=== PATIENT | female | born 1975 | race Caucasian/White ===

== ENCOUNTER → 2018-02-28 12:01 | Outpatient (CLI) | payer MEDICARE, SELFPAY ==
--- NOTE | 2018-02-28 | DI.MG.S_ITS ---
UNILATERAL LEFT DIGITAL DIAGNOSTIC MAMMOGRAM 3D/2D SHORT-TERM FOLLOW-UP: 02/28/2018 CLINICAL: Patient returns for a 6 month follow up of the left breast. Comparison is made to exams dated: 08/02/2017 mammogram, 07/19/2017 mammogram, and 04/20/2016 mammogram - [facility]. The tissue of left breast is extremely dense, which lowers the sensitivity of mammography. Previously identified grouped punctate calcifications in the upper outer left breast at 2 o'clock posterior depth remain stable when compared with exams of 08/02/2017 and 07/19/2017. No other significant masses, calcifications, or other findings are seen in the breast. IMPRESSION: PROBABLY BENIGN Previously identified grouped punctate calcifications in the upper outer left breast at 2 o'clock posterior depth remain stable when compared with exams of 08/02/2017 and 07/19/2017. A follow-up mammogram in 6 months is recommended to demonstrate stability. Patient will be due for bilateral screening mammography at that time as well. This exam was interpreted at Station ID: [id number]. NOTE: For mammograms, a report in lay terms will be sent to the patient. Approximately 15% of breast malignancies will not be visualized mammographically. In the management of a palpable breast mass, a negative mammogram must not discourage biopsy of a clinically suspicious lesion. Electronically Signed By: Lazarus Yu M.D. ecl/:02/28/2018 13:29:39 letter sent: Followup Recommended ACR BI-RADS Category 3: Probably benign 3343F
== END ==
PROVIDERS: PCP Nurse Practitioner Gerontology; Visit Provider Nurse Practitioner Gerontology
DX: R92.1 Mammographic calcification found on diagnostic imaging of breast (principal)
CPT/HCPCS: 77065; G0279

== ENCOUNTER → 2018-09-05 13:28 | Outpatient (CLI) | payer MEDICARE, SELFPAY ==
--- NOTE | 2018-09-05 | DI.MG.S_ITS ---
BILATERAL DIGITAL DIAGNOSTIC MAMMOGRAM 3D/2D: 09/05/2018 CLINICAL: Short term follow up, due bilaterally. Comparison is made to exams dated: 02/28/2018 mammogram, 08/02/2017 mammogram, and 07/19/2017 mammogram - [facility]. The tissue of both breasts is extremely dense, which lowers the sensitivity of mammography. Previously identified grouped punctate calcifications in the upper outer left breast at 2 o'clock posterior depth remain stable when compared with exams of 02/28/2018, 08/02/2017 and 07/19/2017. No significant masses, calcifications, or other findings are seen in either breast. IMPRESSION: Previously identified grouped punctate calcifications in the upper outer left breast at 2 o'clock posterior depth remain stable when compared with exams of 02/28/2018, 08/02/2017 and 07/19/2017. There is no mammographic evidence of malignancy. Return to annual mammogram screening schedule is recommended. Findings and recommendations were conveyed to the patient at time of exam. This exam was interpreted at Station ID: [id number]. NOTE: For mammograms, a report in lay terms will be sent to the patient. Approximately 15% of breast malignancies will not be visualized mammographically. In the management of a palpable breast mass, a negative mammogram must not discourage biopsy of a clinically suspicious lesion. Electronically Signed By: Lisa traylor/:09/05/2018 16:49:01 letter sent: Normal Exam ACR BI-RADS Category 2: Benign Finding(s) 3342F
== END ==
LOC: MAMMO 13:30
PROVIDERS: PCP Nurse Practitioner Gerontology; Visit Provider Nurse Practitioner Gerontology
DX: R92.1 Mammographic calcification found on diagnostic imaging of breast (principal)
CPT/HCPCS: 77066; G0279

== ENCOUNTER → 2019-12-31 17:03 | Outpatient (CLI) | payer MEDICARE, MEDICAID, SELFPAY ==
--- NOTE | 2019-12-31 17:19 | DI.MG.S_ITS ---
Patient Name: BAYRON MASSEY date: 1975 Sex: F Attending Physician: Darío Indications: Date: 12/31/2019 17:15 At the request of: NELLY BRITTON Procedure: MM screening mammo BI BILATERAL DIGITAL SCREENING MAMMOGRAM 3D/2D WITH CAD: 12/31/2019 CLINICAL: Routine screening. Comparison is made to exams dated: 09/05/2018 mammogram, 08/02/2017 mammogram, 07/19/2017 mammogram, and 04/20/2016 mammogram - [facility]. The tissue of both breasts is heterogeneously dense. This may lower the sensitivity of mammography. Current study was also evaluated with a Computer Aided Detection (CAD) system. There are benign calcifications in both breasts. No significant masses, calcifications, or other findings are seen in either breast. There has been no significant interval change. IMPRESSION: BENIGN There is no mammographic evidence of malignancy. A 1 year screening mammogram is recommended. This exam was interpreted at Station ID: [id number]. NOTE: For mammograms, a report in lay terms will be sent to the patient. Approximately 15% of breast malignancies will not be visualized mammographically. In the management of a palpable breast mass, a negative mammogram must not discourage biopsy of a clinically suspicious lesion. Electronically Signed By: Crescencio ramon/rome:01/01/2020 08:48:59 letter sent: Normal Exam ACR BI-RADS Category 2: Benign Finding(s) 3342F
== END ==
PROVIDERS: PCP Nurse Practitioner Gerontology; Referring Provider Nurse Practitioner Gerontology; Visit Provider Nurse Practitioner Gerontology
DX: Z12.31 Encounter for screening mammogram for malignant neoplasm of breast (principal)
CPT/HCPCS: 77063; 77067

== ENCOUNTER → 2021-03-11 12:02 | Outpatient (CLI) | payer BC, MEDICARE, OTHER, MEDICAID, SELFPAY ==
--- NOTE | 2021-03-11 | DI.MG.S_ITS ---
BILATERAL DIGITAL SCREENING MAMMOGRAM 3D/2D WITH CAD: 03/11/2021 CLINICAL: Routine screening. Comparison is made to exams dated: 03/11/2021 mammogram, 12/31/2019 mammogram, 09/05/2018 mammogram, and 07/19/2017 mammogram - [facility]. The tissue of both breasts is heterogeneously dense. This may lower the sensitivity of mammography. Current study was also evaluated with a Computer Aided Detection (CAD) system. There are benign calcifications in both breasts. No significant masses, calcifications, or other findings are seen in either breast. There has been no significant interval change. IMPRESSION: BENIGN There is no mammographic evidence of malignancy. A 1 year screening mammogram is recommended. This exam was interpreted at Station ID: [id number]. NOTE: For mammograms, a report in lay terms will be sent to the patient. Approximately 15% of breast malignancies will not be visualized mammographically. In the management of a palpable breast mass, a negative mammogram must not discourage biopsy of a clinically suspicious lesion. Electronically Signed By: Seven mas/rome:03/11/2021 12:48:37 letter sent: Normal Exam ACR BI-RADS Category 2: Benign Finding(s) 3342F
== END ==
PROVIDERS: PCP Nurse Practitioner; Referring Provider Nurse Practitioner; Visit Provider Nurse Practitioner
DX: Z12.31 Encounter for screening mammogram for malignant neoplasm of breast (principal)
CPT/HCPCS: 77063; 77067

== ENCOUNTER → 2021-04-04 12:35 | Outpatient (CLI) | payer BC, MEDICARE, MEDICAID, SELFPAY ==
--- NOTE | 2021-04-04 12:44 | DI.CT.S_ITS ---
PROCEDURE: CT HEAD/BRAIN WO CON INDICATIONS: Migraine, unspecified, not intractable, without st TECHNIQUE: Noncontrast 4.5 mm thick angled axial sections acquired from the foramen magnum to the vertex, with coronal and sagittal reformats. For radiation dose reduction, the following was used: automated exposure control, adjustment of mA and/or kV according to patient size. COMPARISON: None. FINDINGS: Cerebrum, Cerebellum and Brainstem: Wedge-shaped cystic encephalomalacia and gliosis along the posterior 3rd of right hemisphere extending to the lateral ventricle also involves the corpus callosum splenium consistent with prior surgical resection. No evidence of intracranial hemorrhage or acute mass effect. Ventricles: As above. No evidence of hydrocephalus. Skull Base: The bony sella, pituitary gland and infundibulum are unremarkable. Clivus and craniovertebral relationships are appropriate. Visualized portions of the external auditory canals and tympanic cavity are within normal limits. Calvarium and Scalp: Right posterior parietal craniectomy with cranioplasty noted. Paranasal Sinuses: Unremarkable as visualized. Polypoid soft tissue density in the nasopharynx is partially imaged Mastoids: Unremarkable as visualized. No mastoid effusion present. IMPRESSION: 1. No acute findings. No intracranial hemorrhage or mass effect. 2. Right-sided wedge-shaped craniectomy with cystic encephalomalacia and cranioplasty 3. Partially imaged polypoid soft tissue density nasopharynx probably reflects sinonasal polyp. Consider dedicated CT sinus. Approved by: Patrick Rosas M.D. on 04/04/2021 at 14:27
== END ==
PROVIDERS: PCP Nurse Practitioner; Referring Provider Nurse Practitioner; Visit Provider Nurse Practitioner
DX: G43.909 Migraine, unspecified, not intractable, without status migrainosus (principal); G93.89 Other specified disorders of brain
CPT/HCPCS: 70450

== ENCOUNTER → 2021-05-06 12:01 | Outpatient (CLI) | payer BC, MEDICARE, MEDICAID, SELFPAY ==
--- NOTE | 2021-05-06 12:11 | DI.CT.S_ITS ---
PROCEDURE: CT SINUS SCREEN WO CON INDICATIONS: Nasal polyp, unspecified TECHNIQUE: Noncontrast 3.0 mm axial images acquired from the frontal sinuses to the mid-sella, with coronal and sagittal reformats. For radiation dose reduction, the following was used: automated exposure control, adjustment of mA and/or kV according to patient size. COMPARISON: [facility], CT, CT HEAD/BRAIN WO CON, 04/04/2021, 12:50. FINDINGS: Image quality: Excellent. Maxillary Sinuses: Mild mucosal thickening is seen involving the inferior right maxillary sinus. The right maxillary sinus is incompletely imaged. Ethmoid Air Cells: No bony remodeling or destruction. Sinuses are clear. Sphenoid Sinuses: No bony remodeling or destruction. Sinuses are clear. Frontal Sinuses: No bony remodeling or destruction. Sinuses are clear. Ostiomeatal Complexes: Ostiomeatal complexes are patent. No Evgeny cells. Miscellaneous: Visualized intra-orbital contents are normal. No jcarlos bullosa or paradoxical turbinate curvature. There is zfuc-pi-yncfapln leftward nasal septal deviation. A lobulated nasopharyngeal soft tissue mass is seen that measures up to 2.5 cm. Within the nasal cavity itself, no significant polyps can be seen. Postoperative change can be partially seen involving posterior right calvarium, with underlying brain abnormality. IMPRESSION: There is a 2.5 cm lobulated soft tissue mass seen within the nasopharynx. Although this may be related to a polyp, differential diagnosis includes neoplasm. Please correlate with physical examination findings. Mild focal soft tissue swelling can be seen within the inferior right maxillary sinus. The right maxillary sinus is incompletely imaged. Mimp-hk-ytmikzhg leftward nasal septal deviation can be seen. Right posterior craniotomy change, with underlying brain abnormality. This is better seen on the recent prior head CT. Dictated by: Parish Watters M.D. on 05/06/2021 at 12:00 Approved by: Parish Watters M.D. on 05/06/2021 at 12:05
== END ==
PROVIDERS: PCP Nurse Practitioner; Referring Provider Otolaryngology; Visit Provider Otolaryngology
DX: J33.9 Nasal polyp, unspecified (principal); J32.3 Chronic sphenoidal sinusitis; J34.89 Other specified disorders of nose and nasal sinuses; J34.2 Deviated nasal septum
CPT/HCPCS: 70486

== ENCOUNTER → 2021-07-13 08:49 | Outpatient (CLI) | payer BC, MEDICARE, MEDICAID, SELFPAY ==
[2021-07-13 11:49] LABS: COVID19 -Nasal RAPID Negative (Negative)
== END ==
PROVIDERS: PCP Nurse Practitioner; Visit Provider Nurse Practitioner Family
DX: Z20.822 Contact with and (suspected) exposure to COVID-19 (principal)
CPT/HCPCS: 87635; C9803

== ENCOUNTER 2021-07-14 13:52 | Day surgery (SDC) | payer BC, MEDICARE, MEDICAID, SELFPAY ==
[2021-07-12 07:55] VITALS: BMI 34.8
[2021-07-14] VITALS (8 sets, daily range): BP systolic 103–139; BP diastolic 61–88; PULSE 52–78; RESP 12–16; TEMP 35.6–36.5; O2SAT 96–99; BMI 34.8
--- NOTE | 2021-07-14 | PATH_ITS ---
[facility] Accession Number: [id number] . 01 Material submitted: . NASAL - RIGHT NASAL POLYP . 01 Diagnosis: Right Nasal Polyp, Excision: Consistent with nasal polyp. Scattered eosinophils and plasma cells present. No evidence of neoplasm. MRV 07/19/2021 1306 Local . 01 Electronically signed: . Ivan Agee MD, PhD, Pathologist NPI- [id number] . 01 Gross description: . Received in one part. . Received in formalin, labeled Vaishnavi Horn and designated 1. Right nasal polyp, is a 3.0 x 2.5 x 2.0 cm, multilobulated, polypoid portion of lara-white, fibrotic, glistening tissue. The base is inked black. The cut surface is uniform, lara-white, and slightly edematous. No additional lesions are identified. Pattern Duplicator sections are submitted in cassette A1. (SHAMAR:[id number]) /FRR 07/16/2021 1806 Local . 01 Pathologist provided ICD-10: J33.9, J34.89 . 01 CPT . 310016 Specimen Comment: A courtesy copy of this report has been sent to [phone] [facility]formed at: [facility] [address] [place] [address] [address] [facility], [place], [place] [id number] MD Louis Ayala MD Phone: [phone]
[2021-07-14] MEDS: OXYMETAZOLINE NASAL SPRAY 15 ML 2 SPRAYS NASAL (14:13)
--- NOTE | 2021-07-14 14:37 | PM.PREOP ---
Pre-operative Note Interval Note History & Physical reviewed/Exam performed by Physician: Yes Changes to H&P: No
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
--- NOTE | 2021-07-14 14:40 | PM.OP.1 ---
Operative Date/Time/Diagnoses Date of procedure: 07/14/21 Time of procedure: 15:38 Pre-op diagnosis: Nasopharyngeal mass, nasal airway obstruction Post-op diagnosis: same Procedure & Clinicians Procedure: Endoscopic excision right intranasal mass, extending into the nasopharynx Same procedure as scheduled: Yes Indications: 45-year-old female with above diagnosis incompletely managed with medical therapy presents for the above procedure. Following discussion of the material risks benefits complications and alternatives, she elected to proceed. Surgeon: Russell Donato Click Yes if Unassisted: Yes Anesthesia Type: General and Local Operative Notes Findings: Several cm pale lobulated mass pedunculated with the attachment point the anterior face of the sphenoid sinus, originating from the medial inferior portion of the large natural os of the right sphenoid sinus. No obvious intra sinus extension, presumed blood supply the nasal septal branch that required cautery. The mass was extracted through the mouth due to its size. Entirely healthy mucosa otherwise. Specimen(s): other (Right nasal/nasopharyngeal mass) Estimated Blood Loss (mL): 5 Procedure in detail: Following identification and confirmation of consent, the patient was brought to the operating room suite and placed in the supine position. General endotracheal anesthesia was administered. Cotton with 4% lidocaine and Afrin on pledgets was placed into the nose on the right for several minutes. Following sterile prep and drape, the packing was removed and under endoscopic guidance I infiltrated the posterior and anterior superior insertion of the right middle turbinate. The mass was easily visualized attached to the anterior face of the right sphenoid with a large natural os already present, no inflammation. I resected the mass by transecting the attachment point with through cutting forceps and the mass was eventually extracted through the mouth due to its size. The attachment point on the face of the sphenoid extending to the medial inferior portion of the natural os was cauterized with suction electrocautery on a setting of 10 with excellent hemostasis. The procedure was completed without known complication and she was extubated in the operating room and taken to recovery room in stable condition. Complications: none Post-operative Condition: stable Disposition: same day surgery Plan for aftercare: Nasal saline every hour while awake, begin irrigations t.i.d. tomorrow, Tylenol alternating with Advil for pain control, oxycodone for breakthrough pain. Elevate head of bed, no nose blowing, no straining for 2 weeks. Follow-up in 1 week, sooner with concerns.
--- NOTE | 2021-07-14 15:14 | SUR.OPER ---
Supine on padded OR bed, head on gel donut, arms padded and tucked at sides, legs uncrossed, safety belt at thigh, tape over blanket over lower legs .
--- NOTE | 2021-07-14 16:07 | SUR.PHASEII ---
SBAR report from Dillon KEENAN. Pt taking coffee. Reports headache and mild pain 2/10 on right side of nose. no drainage to dressing.
[2021-07-14] MEDS: OXYCODONE/ACETAMINOPHEN 5/325 TABLET 1 TAB PO (16:16)
[2021-07-14] MEDS: LACTATED RINGERS 1,000 ML 42 ML IV (16:55)
--- NOTE | 2021-07-14 16:55 | SUR.PHASEII ---
IV started in pre-op. completed in PACU
--- NOTE | 2021-07-14 17:03 | SUR.PHASEII ---
Pt car, discharge instructions reviewed with Devon escobar [facility]. Spoke with Dr Donato. Clarified saline flush with small bottle every hour and saline rinse three times a day.
== END 2021-07-14 17:00 | disposition home or self-care (01) ==
PROVIDERS: PCP Nurse Practitioner; Referring Provider Otolaryngology; Visit Provider Otolaryngology
PROC: (CPT 31231; principal; 2021-07-14 15:00)
DX: J33.9 Nasal polyp, unspecified (principal); J34.89 Other specified disorders of nose and nasal sinuses
CPT/HCPCS: 31237; A9270; J1100; J2250; J2405; J2704; J3010

== ENCOUNTER → 2022-09-23 09:06 | Outpatient (CLI) | payer BC, MEDICARE, SELFPAY ==
--- NOTE | 2022-09-23 09:10 | DI.MG.S_ITS ---
BILATERAL DIGITAL SCREENING MAMMOGRAM 3D/2D WITH CAD: 09/23/2022 CLINICAL: Routine screening. Comparison is made to exams dated: 03/11/2021 mammogram, 03/11/2021 mammogram, and 12/31/2019 mammogram - [facility]. Both breasts are heterogeneously dense, which may obscure small masses (category c / 51-75% glandular tissue). Current study was also evaluated with a Computer Aided Detection (CAD) system. There are benign calcifications in both breasts. No significant masses, calcifications, or other findings are seen in either breast. There has been no significant interval change. IMPRESSION: BENIGN There is no mammographic evidence of malignancy. A 1 year screening mammogram is recommended. Based on the Tyrer Cuzick model (a risk assessment model) the patient's lifetime risk is 8.7% and her 10 year risk is 1.6%. According to the ACR, ACS, and NCCN guidelines, an annual breast MRI exam along with mammogram is recommended if the patient's lifetime risk is 20% or greater. This exam was interpreted at Station ID: [id number]. NOTE: For mammograms, a report in lay terms will be sent to the patient. Approximately 15% of breast malignancies will not be visualized mammographically. In the management of a palpable breast mass, a negative mammogram must not discourage biopsy of a clinically suspicious lesion. Electronically Signed By: [place] nicholas/rome:09/25/2022 09:13:23 letter sent: Normal Exam ACR BI-RADS Category 2: Benign Finding(s) 3342F
== END ==
PROVIDERS: PCP Nurse Practitioner; Referring Provider Nurse Practitioner; Visit Provider Nurse Practitioner
DX: Z12.31 Encounter for screening mammogram for malignant neoplasm of breast (principal)
CPT/HCPCS: 77063; 77067

== ENCOUNTER 2022-12-18 12:42 | Day surgery (SDC) | payer BC, MEDICARE, SELFPAY ==
--- NOTE | 2022-12-18 | PATH_ITS ---
[facility] Accession Number: [id number] No. of containers..02 Tissue . 01 Material submitted: . PART A: colon - CECUM PART B: colon - ASCENDING POLYP . 01 Diagnosis: A. Cecum, Polyp: Sessile serrated adenoma. . B. Ascending Colon, Polyp: Tubular adenoma. MRV 12/26/2022 1758 Local . 01 Electronically signed: . Vaishnavi De Oliveira MD, Pathologist NPI- [id number] . 01 Gross description: . Part A: CECUM: Received in formalin is 2 fragment(s) of lara, soft tissue measuring 1.1 x 0.6 x 0.4 cm to 05 x 0.3 x 0.2 cm submitted entirely in 1 cassette(s) Part B: ASCENDING POLYP: Received in formalin is 3 fragment(s) of lara, soft tissue measuring 0.7 x 0.3 x 0.2 cm to 0.3 x 0.2 x 0.2 cm submitted entirely in 1 cassette(s) /AAY 12/19/2022 0440 Local . 01 Pathologist provided ICD-10: D12.0, D12.2 . 01 CPT . 753244, 659877 Specimen Comment: A courtesy copy of this report has been sent to [phone] Performed at: [facility] [address] [place] [address], [place], [place] [id number] MD Louis Ayala MD Phone: [phone]
[2022-12-18 13:01] VITALS: BP 127/83; PULSE 79; RESP 16; TEMP 36.4; O2SAT 97; BMI 33.0
[2022-12-18] MEDS: LACTATED RINGERS 1,000 ML 125 ML IV (13:26)
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
--- NOTE | 2022-12-18 15:42 | PM.OP.COLON ---
Operative Date/Time/Diagnoses Date of procedure: 12/18/22 Time of procedure: 15:42 Pre-op diagnosis: Colon cancer screening Post-op diagnosis: same Procedure & Clinicians Study performed: Colonoscopy with hot snare polypectomy Same procedure as scheduled: Yes Indications: Colon cancer screening Surgeon: Faraz Pérez Procedure Notes SCOAP/Timeout: Done Procedure in detail: After the risks and benefits were explained, written and verbal informed consent was obtained. The patient was brought into the procedure room and placed into the left lateral decubitus position. Please see anesthesia note for sedation details. Digital rectal examination was accomplished. The scope was introduced into the patient and advanced under direct visualization to the cecum as identified by the appendiceal orifice and ileocecal valve. The scope was slowly withdrawn to carefully examine the mucosa for any defects or lesions. Comprehensive imaging was accomplished throughout the rectum including the dentate line. The colon was decompressed, the scope was then removed from the patient who tolerated the procedure well. Pediatric colonoscope Bowel prep adequate Scope withdrawal time: 21 minutes Sedation minutes: 31 Complications: none Impression: There was a 15 mm sessile polyp in the cecum removed with hot snare. In the ascending colon there was an approximately 10 mm sessile polyp removed with hot snare. This required 2 separate snares as the most proximal aspect of this polyp did not come with the 1st excision attempt. It was therefore removed in piecemeal format. No other significant pathology was appreciated throughout. Endoscopic diagnosis 1. Colon polyps 2. Otherwise visually unremarkable colonoscopy Post-procedure Plan for aftercare: 1. Await histopathology. 2. Timing of repeat colonoscopy will be contingent on histopathology results. Because of the piecemeal removal of the ascending colon polyp, an early surveillance may be appropriate. Disposition: PACU
[2022-12-18 15:46] VITALS: BP 101/61; PULSE 50; RESP 16; TEMP 36.2; O2SAT 98
[2022-12-18 15:50] VITALS: BP 101/61; PULSE 50; RESP 16; TEMP 36.2; O2SAT 98
[2022-12-18 15:55] VITALS: BP 125/77; PULSE 87; RESP 16; TEMP 36.8; O2SAT 98
[2022-12-18 16:02] VITALS: BP 101/66; PULSE 55; RESP 16; TEMP 36.2; O2SAT 98
== END 2022-12-18 16:15 | disposition home or self-care (01) ==
PROVIDERS: PCP Nurse Practitioner; Referring Provider Internal Medicine Gastroenterology; Visit Provider Internal Medicine Gastroenterology
PROC: 0DJD8ZZ Inspection of Lower Intestinal Tract, Via Natural or Artificial Opening Endoscopic (ICD-10-PCS; CPT 45378; principal; 2022-12-18 14:00)
DX: Z12.11 Encounter for screening for malignant neoplasm of colon (principal); D12.0 Benign neoplasm of cecum; D12.2 Benign neoplasm of ascending colon
CPT/HCPCS: 45385; J2704

== ENCOUNTER → 2023-10-19 08:01 | Outpatient (CLI) | payer BC, SELFPAY ==
--- NOTE | 2023-10-19 | DI.MG.S_ITS ---
BILATERAL DIGITAL SCREENING MAMMOGRAM 3D/2D WITH CAD: 10/19/2023 CLINICAL: Routine screening. Comparison is made to exams dated: 09/23/2022 mammogram, 03/11/2021 mammogram, and 03/11/2021 mammogram - [facility]. Both breasts are heterogeneously dense, which may obscure small masses (category c / 51-75% glandular tissue). Current study was also evaluated with a Computer Aided Detection (CAD) system. There are benign calcifications in both breasts. No significant masses, calcifications, or other findings are seen in either breast. There has been no significant interval change. IMPRESSION: BENIGN There is no mammographic evidence of malignancy. A 1 year screening mammogram is recommended. Based on the Tyrer Cuzick model (a risk assessment model) the patient's lifetime risk is 9.0% and her 10 year risk is 1.9%. According to the ACR, ACS, and NCCN guidelines, an annual breast MRI exam along with mammogram is recommended if the patient's lifetime risk is 20% or greater. This exam was interpreted at Station ID: [id number]. NOTE: For mammograms, a report in lay terms will be sent to the patient. Approximately 15% of breast malignancies will not be visualized mammographically. In the management of a palpable breast mass, a negative mammogram must not discourage biopsy of a clinically suspicious lesion. Electronically Signed By: Crescencio ramon/rome:10/19/2023 08:59:20 letter sent: Normal Exam ACR BI-RADS Category 2: Benign Finding(s) 3342F
== END ==
PROVIDERS: PCP Nurse Practitioner; Referring Provider Nurse Practitioner; Visit Provider Nurse Practitioner
DX: Z12.31 Encounter for screening mammogram for malignant neoplasm of breast (principal); R92.333 Mammographic heterogeneous density, bilateral breasts
CPT/HCPCS: 77063; 77067

== ENCOUNTER → 2023-11-02 07:29 | Outpatient (CLI) | payer BC, SELFPAY ==
--- NOTE | 2023-11-02 07:30 | DI.US.S_ITS ---
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 Additional endovaginal scanning was necessary due to incomplete visualization of the adnexal and endometrial structures by transabdominal scanning. COMPARISON: None. FINDINGS: Uterus: Uterus is anteverted and normal in size at 10.4 x 5.5 x 7.3 cm. The myometrium is heterogeneous. The endometrium is suboptimally visualized and the measures approximately 5.3 mm combined thickness. Mid anterior subserosal uterine fibroid measuring 2.2 x 1.4 x 2.3 cm. There may be additional smaller uterine fibroids. Ovaries: The right ovary measures 2.5 x 1.6 x 3.3 cm, with a calculated ovarian volume of 6.7 cc. The left ovary measures 2.4 x 3.4 x 3.5 cm, with a calculated ovarian volume of 15 cc. The ovaries have a normal sonographic appearance. Less than 12 follicles can be seen in each ovary. No adnexal masses are seen. Other: No pathologic free abdominal or pelvic fluid. IMPRESSION: 1. The endometrium is suboptimally visualized and the measures approximately 5.3 mm combined thickness. 2. Uterine fibroid measuring 2.2 x 1.4 x 2.3 cm. There may be additional smaller uterine fibroids. 3. Myometrium is heterogeneous which is nonspecific and may reflect adenomyosis. If clinically warranted, an MRI of the pelvis can be performed for further evaluation. We strive to produce accurate, complete, and clear reports of imaging services. To assist us in improving patient care, this report was composed using standard report templates and voice recognition software. Therefore, it may contain abnormal punctuation, insertions and/or omissions. Occasional wrong-word or sound-alike substitutions may occur. Though we review the report and make efforts to correct it, we do recommend that the report be read carefully in proper context to recognize any text inaccuracies. Dictated by: Molly Staples M.D. on 11/06/2023 at 13:35 Approved by: Molly Staples M.D. on 11/06/2023 at 13:48
== END ==
LOC: US 07:29
PROVIDERS: PCP Nurse Practitioner; Referring Provider Nurse Practitioner; Visit Provider Nurse Practitioner
DX: N85.02 Endometrial intraepithelial neoplasia [EIN] (principal); D25.2 Subserosal leiomyoma of uterus
CPT/HCPCS: 76856